=== PATIENT | male | born 1990 | race Caucasian/White ===

== ENCOUNTER 2020-06-17 20:59 | Inpatient (IN) ==
[2020-06-17] MEDS ORDERED: PROCHLORPERAZINE 2 ML IV ONE (21:39)
[2020-06-17] MEDS ORDERED: AcetylCYSTEINE IV 21 HR REGIMEN (>40KG) IV STA (21:39)
[2020-06-17] MEDS ORDERED: ACETYLCYSTEINE IV ONE (21:39)
[2020-06-17] MEDS ORDERED: DEXTROSE 5% IV ONE (21:39)
[2020-06-17] MEDS ORDERED: FAMOTIDINE 20MG/5ML IV PUSH IV STA (21:39)
[2020-06-17] MEDS ORDERED: SODIUM CHLORIDE 0.9% 1000ML 2,000 ML IV SCH (21:45)
[2020-06-17 21:49] LABS: Basophils # (auto) 0.02 K/uL (0-0.2); Basophils % (auto) 0.2 %; Eosinophils # (auto) 0.02 K/uL (0-0.5); Eosinophils % (auto) 0.2 %; Hematocrit (blood only) 44.5 % (42-52); Hemoglobin 15.2 g/dL (14.0-18.0); Immature Granulocytes # (auto) 0.02 K/uL (0.00-0.02); Immature Granulocytes % (auto) 0.2 %; Lymphocytes # (auto) 0.58 K/uL (1.2-3.4); Lymphocytes % (auto) 6.9 %; Mean Corpuscular Hemoglobin 29.6 pg (25-34); Mean Corpuscular Hgb Conc 34.2 g/dL (32-36); Mean Corpuscular Volume 86.7 fL (80-100); Monocytes # (auto) 0.27 K/uL (0.11-0.59); Monocytes % (auto) 3.2 %; Neutrophils # (auto) 7.52 K/uL (1.4-6.5); Neutrophils % (auto) 89.3 %; Platelet Count 384 K/uL (130-400); RDW Coefficient of Variation 12.7 % (11.5-14.5); RDW Standard Deviation 40.7 fL (36.4-46.3); Red Blood Count 5.13 M/uL (4.7-6.1); White Blood Count 8.43 K/uL (4.8-10.8)
[2020-06-17 22:14] LABS: Albumin Level 4.8 gm/dl (3.4-5.0); BUN Creatinine Ratio 12.7 (10-20); Calcium 9.7 mg/dl (8.5-10.1); Creatinine Clr Calc Pharmacy 123.2 ml/min; Est GFR (African American) 117.4; Est GFR (Non-African American) 101.3; Magnesium 2.5 mg/dl (1.8-2.4)
[2020-06-17 22:25] LABS: Albumin Globulin Ratio 1.3 (0.9-2); Bilirubin,Total 0.6 mg/dl (0.2-1); Globulin 3.8 gm/dl (2.5-4.0); Thyroid Stimulating Hormone 0.944 uIu/ml (0.300-4.500); Total Protein 8.6 gm/dl (6.4-8.2)
[2020-06-17 22:29] LABS: Acetaminophen 12 ug/ml (10-30); Lithium 0.4 mmol/L (0.6-1.2); Salicylate < 1.7 mg/dl (2.8-20)
[2020-06-17] MEDS ORDERED: IOVERSOL 100ml IV ONE (22:39)
[2020-06-17] MEDS ORDERED: AcetylCYSTEINE 4,100 MG in DEXTROSE 5% 500 ML IV ONE (22:42)
--- NOTE | 2020-06-17 23:31 | History & Physical Report ---
Date of Service June 17, 2020 Assessment & Plan (1) Intentional acetaminophen overdose: Initial acetaminophen level is 12. Continue Acetadote per protocol. Admit to monitored bed. Patient is a poor historian, and reports that he has taken in addition multiple dosages of Flagyl and antacids. Present on Admission?: Yes (2) GERD (gastroesophageal reflux disease): Continue pantoprazole Present on Admission?: Yes (3) Depression: Consult psychiatry Hold all current meds Present on Admission?: Yes History of Present Illness Chief Complaint: The patient presents to the emergency department with report of intentional acetaminophen overdose. Primary Care Provider: NO PCP The patient is a 29-year-old male resident of [facility], who reports that between 9 AM and 2 PM today, he took 120 tablets of 500 mg dosage of acetaminophen, 2 containers of antacids, and 60 tablets of his 5 mg Flagyl to get back at the officers [facility] the [facility], so they would have to take him to the hospital. Allergies Allergy/AdvReac Type Severity Reaction Status Date / Time ibuprofen [From Motrin] Allergy Gastrointestinal Verified 06/17/20 21:42 Upset Home Medications Home Medications Medication Instructions Recorded Confirmed Type Mineral Oil Heavy 30 ml PO BID 06/17/20 06/17/20 History Tums Anti-Gas/Antacid 2 tabs PO BID 06/17/20 06/17/20 History acetaminophen 1,000 mg PO BID PRN 06/17/20 06/17/20 History lithium carbonate 300 mg PO BID 06/17/20 06/17/20 History magnesium citrate 1 dose PO BID 06/17/20 06/17/20 History magnesium hydroxide [Milk of 30 ml PO DAILY PRN 06/17/20 06/17/20 History Magnesia] metronidazole 500 mg PO TID 06/17/20 06/17/20 History mirtazapine 15 mg PO HS 06/17/20 06/17/20 History ondansetron 4 mg PO TID 06/17/20 06/17/20 History pantoprazole 40 mg PO DAILY 06/17/20 06/17/20 History prazosin [Minipress] 1 mg PO HS 06/17/20 06/17/20 History propranolol 10 mg PO BID 06/17/20 06/17/20 History sucralfate 1 g PO QID 06/17/20 06/17/20 History Past Med/Surg History Medical History (Updated 06/18/20 @ 02:11 by Krishna Myers MD) Depression GERD (gastroesophageal reflux disease) Insomnia Social History Smoking Status: Never smoker Preferred Language: Khmer Review of Systems Review of Systems: The patient denies chest pain, palpitations, shortness of breath, dyspnea on exertion, cough, lower extremity swelling, sore throat, fevers, chills, sweats, vomiting, diarrhea , constipation, abdominal pain, pelvic pain, blood in urine or stool, dysuria, urinary frequency or urgency, lightheadedness, dizziness, headache, memory loss, loss of consciousness, rash, abnormal bruising or bleeding, imbalance, focal or generalized weakness, numbness or tingling in arms or legs, generalized arthralgias or myalgias, back or neck pain, or night sweats. The review of systems is otherwise negative other than for that already noted ab ove, and at least 10 systems have been reviewed. Physical Exam Physical Exam: The patient is awake, alert and oriented 3, well developed and well nourished, normocephalic and atraumatic, lying in bed and in no acute distress. HEENT--PERRL, EOMI, mucous membranes and oropharynx normal. Neck--supple. No JVD. No bruits. Thyroid normal, trachea midline, no adenopathy. Heart--normal S1 and S2. No murmurs, rubs or gallops. Lungs--clear bilaterally, no respiratory distress, no accessory muscle use. Abdomen--normal bowel sounds and soft. Nontender. Nondistended. Extremities--no cyanosis or clubbing. No edema. There are good distal pulses b/l. Dermatologic--normal skin turgor, normal color, no abnormal lymph nodes, no rash. Neurologic--cranial nerves II through XII grossly intact. Rheumatologic--normal range of motion. Psychiatric--normal affect. Results & Data Results & Data ([facility]) Vital Signs (Past 12 Hours) Vital Signs Temp Pulse Resp BP Pulse Ox 06/17/20 21:02 99.0 F 83 18 128/84 98 Laboratory Results Laboratory Results WBC 8.43 K/uL (4.8-10.8) 06/17/20 21:25 RBC 5.13 M/uL (4.7-6.1) 06/17/20: Hgb 15.2 g/dL (14.0-18.0) 06/17/20: Hct 44.5 % (42-52) 06/17/20: MCV 86.7 fL (80-100) 06/17/20: MCH 29.6 pg (25-34) 06/17/20: MCHC 34.2 g/dL (32-36) 06/17/20: RDW Std Deviation 40.7 fL (36.4-46.3) 06/17/20: RDW Coeff of [place] 12.7 % (11.5-14.5) 06/17/20: Plt Count 384 K/uL (130-400) 06/17/20: MPV 10.0 fL (7.4-10.4) 06/17/20: Immature Gran % (Auto) 0.2 % 06/17/20: Neut % (Auto) 89.3 % 06/17/20: Lymph % (Auto) 6.9 % 06/17/20: [place] % (Auto) 3.2 % 06/17/20: Eos % (Auto) 0.2 % 06/17/20: Baso % (Auto) 0.2 % 06/17/20: Neut # (Auto) 7.52 K/uL (1.4-6.5) H 06/17/20: Lymph # (Auto) 0.58 K/uL (1.2-3.4) L 06/17/20: [place] # (Auto) 0.27 K/uL (0.11-0.59) 06/17/20: Eos # (Auto) 0.02 K/uL (0-0.5) 06/17/20: Baso # (Auto) 0.02 K/uL (0-0.2) 06/17/20: Immature Gran # (Auto) 0.02 K/uL (0.00-0.02) 06/17/20 21: PT 11.4 Seconds (9.0-12.0) 06/17/20 21:25 INR 1.1 (0.9-1.1) 06/17/20 21:25 APTT 25.5 Seconds (21.0-31.0) 06/17/20 21:25 PTT Ratio 0.9 06/17/20 21:25 Sodium 137 mmol/L (136-145) 06/17/20 21:25 Potassium 4.0 mmol/L (3.5-5.1) 06/17/20 21:25 Chloride 104 mmol/L (98-107) 06/17/20 21:25 Carbon Dioxide 28 mmol/L (21-32) 06/17/20 21:25 Anion Gap 6.0 (3-11) 06/17/20 21:25 BUN 13 mg/dl (7-18) 06/17/20:25 Creatinine 1.00 mg/dl (0.6-1.4) 06/17/20 21:25 Est Cr Clr Drug Dosing 123.2 ml/min 06/17/20 21:25 Est GFR ( Amer) 117.4 06/17/20 21:25 Est GFR (Non-Af Amer) 101.3 06/17/20 21:25 BUN/Creatinine Ratio 12.7 (10-20) 06/17/20 21:25 Glucose 109 mg/dl (70-99) H 06/17/20 21:25 Calcium 9.7 mg/dl (8.5-10.1) 06/17/20 21:25 Phosphorus 3.0 mg/dl (2.5-4.9) 06/17/20 21:25 Magnesium 2.5 mg/dl (1.8-2.4) H 06/17/20 21:25 Total Bilirubin 0.6 mg/dl (0.2-1) 06/17/20 21:25 AST 15 U/L (15-37) 06/17/20 21:25 ALT 17 U/L (12-78) 06/17/20 21:25 Alkaline Phosphatase 53 U/L (45-117) 06/17/20 21:25 Total Protein 8.6 gm/dl (6.4-8.2) H 06/17/20 21:25 Albumin 4.8 gm/dl (3.4-5.0) 06/17/20 21:25 Globulin 3.8 gm/dl (2.5-4.0) 06/17/20 21:25 Albumin/Globulin Ratio 1.3 (0.9-2) 06/17/20 21:25 TSH 0.944 uIu/ml (0.300-4.500) 06/17/20 21:25 Urine Color Yellow 06/17/20 23:30 Urine Appearance Clear (Clear) 06/17/20 23:30 Urine pH 8.0 (4.5-7.5) H 06/17/20 23:30 Ur Specific [place] 1.023 (1.000-1.030) 06/17/20 23:30 Urine Protein Negative (Negative) 06/17/20 23:30 Urine Glucose (UA) Negative (Negative) 06/17/20 23:30 Urine Ketones 2+ (Negative) H 06/17/20 23:30 Urine Blood Negative (Negative) 06/17/20 23:30 Urine Nitrite Negative (Negative) 06/17/20 23:30 Urine Bilirubin Negative (Negative) 06/17/20 23:30 Urine Urobilinogen Negative (Negative) 06/17/20 23:30 Ur Leukocyte Esterase Negative (Negative) 06/17/20 23:30 Salicylates < 1.7 mg/dl (2.8-20) L 06/17/20 21:25 Urine Opiates Screen Neg (Neg) 06/17/20 23:30 Ur Methadone, Qual Neg (Neg) 06/17/20 23:30 Acetaminophen 12 ug/ml (10-30) 06/17/20 21:25 Urine Barbiturates Neg (Neg) 06/17/20 23:30 Ur Phencyclidine (PCP) Neg (Neg) 06/17/20 23:30 U Amphetamin/Meth Scrn Neg (Neg) 06/17/20 23:30 MDMA (Ecstasy) Screen Neg (Neg) 06/17/20 23:30 U Benzodiazepines Scrn Neg (Neg) 06/17/20 23:30 [place] 0.4 mmol/L (0.6-1.2) L 06/17/20 21:25 Ur Cocaine Metabolite Neg (Neg) 06/17/20 23:30 U Marijuana (THC) Screen Neg (Neg) 06/17/20 23:30 Ethyl Alcohol mg/dL < 3.0 mg/dl (0-3) 06/17/20 21:59 Diagnostic Findings [facility] Patient: MANDO GILL [id number] (Male) : 89 Status: ER Date: 06/17/20 22:41 Room #: History: abdominal pains overdose, appendix present Slices: [phone] Priors: Tech: Patti Mendosa @ [phone] Exams: CT ABDOMEN & PELVIS With Contrast Contrast: IV Amt: 93ml of optiray 320 Accession Numbers: [id number] Preliminary Findings Only See Final Report For Complete Findings CT ABDOMEN & PELVIS With Contrast: Small left renal cyst. No hydronephrosis or obstructing stone. Small amount of free fluid in the pelvis. Moderate to large amount of stool in the colon may represent constipation. No bowel obstruction. Normal appendix. Radiologist: J Carlso Howell M.D. Study ready at 22:44 and initial results transmitted at 23:10 *This report constitutes a preliminary interpretation only. Non-acute findings felt to be unrelated to the clinical presentation may not be discussed in this report. The study will be interpreted and a final report will be generated by the local Radiologist the following shift. To reach the hospital radiology department call [phone]. If a discrepancy is found between the preliminary and final interpretations of this study, please notify us via our Client Portal at [email or web address] can also fax this report with a description of the discrepancy, or include the final report, to our daytime fax number [phone].If faxing, please indicate the severity of discrepancy using one of the following categories: [ ] 1 - Agree/Informational [ ] 2 - Unlikely to Affect Management [ ] 3 - Possible Eventual Change of Management [ ] 4 - Probable Immediate Change of Management For all other patient related information, please fax us at [phone]. [id number] Code Status & VTE Plan Code Status Full code VTE Prophylaxis Plan VTE Prophylaxis will be ordered: Yes PG Care Time/CCT Total # of Minutes Spent Total Time Spent with Patient: Total time spent is greater than 50% in coordination of care (as documented) at patient's floor/unit and/or counseling patient: Coding Level of Care Code 71101 Initial Inpt Care Lvl 3 Diagnoses Intentional acetaminophen overdose T39.1X2A GERD (gastroesophageal reflux disease) K21.9 Depression F32.9
--- NOTE | 2020-06-17 23:34 | Emergency Department Note ---
Impression & Plan Intentional acetaminophen overdose, Depression, Abdominal pain, epigastric, Nausea & vomiting ED Provider Note NAME: MANDO [id number] BRIDGET AGE: 29 SEX: M ARRIVES VIA: Walk-In INFORMANT: Patient ED PROVIDER(S): Jose Alfredo Dowell MD CHIEF COMPLAINT: Overdose PLAN: Disposition: Admit MEDICAL DECISION MAKING: The patient is a pleasant 29-year-old gentleman, current inmate at [facility] who presents emerged department after having intentional overdose which occurred throughout today where he reports taking 120 tablets of 500 mg Tylenol between 9 AM and 2 PM today in addition to 2 containers of antacids and 60 tablets of his 500 mg Flagyl which she reports he took as he got in a dispute with his officers and did this to get back at them so they would "have to take him to the hospital" but he denies any active thoughts of wanting to kill himself at this time though he does admit to feeling frequently depressed and hopeless at times. He denies any recent illness prior to today including denies fevers chills, cough congestion, patient reports he has had recurrent nausea and vomiting with bloody emesis at times since this afternoon and feels as though he has not urinated. On arrival the patient is in no acute distress, afebrile stable vital signs. He has mild upper abdominal discomfort without discrete tenderness. EKG is unremarkable with out overt acute ischemia. QTC 428 and QRS 106. Chest x- ray negative for acute process per my preliminary review. Given the patient's Tylenol overdose occurred over the course of 5 hours his overdose would be categorized as chronic ingestion making the Tylenol level less valuable and so neck protocol was initiated. WBC, H/H and platelets within normal limits. Chemistry without acidosis. Electrolytes and LFTs unremarkable. Salicylate level negative. Tylenol level detectable at 12, lithium level at 0.4. Blood alcohol was negative. CT and pelvis was performed and negative for acute process per preliminary stat read report. I did discuss the case with [facility] and they agree with treatment with neck protocol given the patient's chronic congestion and recommend monitoring of LFTs with repeat LFTs 4 hours prior to discontinuing of 21-hour neck protocol as well as morning electrolytes particularly sodium and calcium given the ingestion of antacids. Case was discussed with Dr. Myers, [facility] hospitalist, who will evaluate the patient for admission. Triage Nursing notes reviewed and agree them. Prior medical records reviewed Vital Signs: reviewed and remarkable for no significant abnormalities Differential diagnosis: Overdose, toxicologic, infection, hypoglycemia, electrolyte abnormalities, cardiac sources, intracerebral event, neurologic, trauma, as well as other pathologies. ER treatment provided: See below. Diagnostics interpreted by me: ECG: Normal sinus rhythm, 79 bpm, no ectopy, no overt ST elevation or depression, QTC 428, QRS 106. Cardiac Monitoring: An order for continuous cardiac monitoring was placed and demonstrated normal sinus rhythm, 79 bpm, no ectopy. Laboratory studies: See below Imaging studies: Preliminary Findings Only See Final Report For Complete Findings CT ABDOMEN & PELVIS With Contrast: Small left renal cyst. No hydronephrosis or obstructing stone. Small amount of free fluid in the pelvis. Moderate to large amount of stool in the colon may represent constipation. No bowel obstruction. Normal appendix. Radiologist: J Carlos Howell M.D. Study ready at 22:44 and initial results transmitted at 23:10 Consultation(s): Case was discussed with Dr. Myers, [facility] hospitalist, who will evaluate the patient for admission. HPI: The patient is a pleasant 29-year-old gentleman, current inmate at [facility] who presents emerged department after having intentional overdose which occurred throughout today where he reports taking 120 tablets of 500 mg Tylenol between 9 AM and 2 PM today in addition to 2 containers of antacids and 60 tablets of his 500 mg Flagyl which she reports he took as he got in a dispute with his officers and did this to get back at them so they would "have to take him to the hospital" but he denies any active thoughts of wanting to kill himself at this time though he does admit to feeling frequently depressed and hopeless at times. He denies any recent illness prior to today including denies fevers chills, cough congestion, patient reports he has had recurrent nausea and vomiting with bloody emesis at times since this afternoon and feels as though he has not urinated. ROS: See above HPI for pertinent positives & negatives. A total of [10] systems reviewed and were otherwise negative. PAST MEDICAL HISTORY:See Below PAST SURGICAL HISTORY:See Below FAMILY HISTORY:See Below SOCIAL HISTORY:See Below HOME MEDICATIONS:See Below ALLERGIES:See Below VITALS:See Below PHYSICAL EXAMINATION: GENERAL: Awake, alert, uncomfortable-appearing, in no distress HENT: Normocephalic, atraumatic. Oropharynx with dry mucous membranes and otherwise unremarkable. EYES: Normal conjunctiva. Sclera non-icteric. EOMI. No nystamgus. PEARRL. NECK: Supple. No nuchal rigidity. FROM. No JVD. RESPIRATORY: Clear to auscultation. CARDIAC: Regular rate, normal rhythm. Extremities warm and well perfused. Pulses equal. ABDOMEN: Soft, non-distended. Mild epigastric discomfort without discrete tenderness to palpation. No rebound or guarding. No masses. RECTAL: Deferred. MUSCULOSKELETAL: Chest examination reveals no tenderness. The back is symmetrical on inspection without obvious abnormality. There is no CVA tenderness to palpation. No joint edema. LOWER EXTREMITIES: Calves are equal size bilaterally and non-tender. No edema. No discoloration. NEURO: Normal sensorium. No sensory or motor deficits noted. DTRs wnl. No clonus. SKIN: No rash or jaundice noted. ED COURSE: Critical Care: I have personally spent greater than 75 minutes of critical care time in the direct management of this patient. This includes bedside care, interpretation of diagnostic studies, and testing, discussion with consultants, patient, and family members, and other required patient management activities. This 75 minutes is in excess of all separately billable procedures. Jose Alfredo Dowell MD Past Med/Surg History Medical History (Updated 06/18/20 @ 03:24 by Jose Alfredo Dowell MD) Depression GERD (gastroesophageal reflux disease) Insomnia Social History Smoking Status: Never smoker Preferred Language: Icelandic Allergies Allergies Allergy/AdvReac Type Severity Reaction Status Date / Time ibuprofen [From Motrin] Allergy Gastrointestinal Verified 06/17/20 21:42 Upset Home Meds Home Medications Medication Instructions Recorded Confirmed Mineral Oil Heavy 30 ml PO BID 06/17/20 06/17/20 Tums Anti-Gas/Antacid 2 tabs PO BID 06/17/20 06/17/20 acetaminophen 1,000 mg PO BID PRN 06/17/20 06/17/20 lithium carbonate 300 mg PO BID 06/17/20 06/17/20 magnesium citrate 1 dose PO BID 06/17/20 06/17/20 magnesium hydroxide [Milk of 30 ml PO DAILY PRN 06/17/20 06/17/20 Magnesia] metronidazole 500 mg PO TID 06/17/20 06/17/20 mirtazapine 15 mg PO HS 06/17/20 06/17/20 ondansetron 4 mg PO TID 06/17/20 06/17/20 pantoprazole 40 mg PO DAILY 06/17/20 06/17/20 prazosin [Minipress] 1 mg PO HS 06/17/20 06/17/20 propranolol 10 mg PO BID 06/17/20 06/17/20 sucralfate 1 g PO QID 06/17/20 06/17/20 Results & Data (ED) Vital Signs Vital Signs - 24 hr 06/17/20 21:02 06/17/20 21:20 06/17/20 21:22 Temperature 37.2 C Temperature Source Oral Pulse Rate 83 78 80 Pulse Rate from SpO2 Sensor 77 79 Respiratory Rate 18 18 13 Respiratory Effort / Characteristics Non-Labored Spontaneous Respiratory Depth Normal Respiratory Pattern Regular Blood Pressure 128/84 130/82 Blood Pressure Mean 98 93 Blood Pressure Position Sitting Pulse Oximetry 98 100 100 Oxygen Delivery Method Room Air Room Air Oxygen Flow Rate 99 Sepsis Recent Fever Within 48 Hours No Sepsis New/Unexplained Change in Mental Status No Sepsis Action Taken by Nursing No Action Required 06/17/20 21:30 06/17/20 21:31 06/17/20 22:00 Temperature Temperature Source Pulse Rate 80 80 75 Pulse Rate from SpO2 Sensor 80 77 76 Respiratory Rate Respiratory Effort / Characteristics Respiratory Depth Respiratory Pattern Blood Pressure 142/85 H 122/75 Blood Pressure Mean 92 84 Blood Pressure Position Pulse Oximetry 99 98 99 Oxygen Delivery Method Oxygen Flow Rate Sepsis Recent Fever Within 48 Hours Sepsis New/Unexplained Change in Mental Status Sepsis Action Taken by Nursing 06/17/20 22:01 06/17/20 22:43 06/17/20 23:00 Temperature Temperature Source Pulse Rate 74 92 H 85 Pulse Rate from SpO2 Sensor 74 90 85 Respiratory Rate 11 L 14 Respiratory Effort / Characteristics Respiratory Depth Respiratory Pattern Blood Pressure 123/72 Blood Pressure Mean 87 Blood Pressure Position Pulse Oximetry 99 99 98 Oxygen Delivery Method Oxygen Flow Rate Sepsis Recent Fever Within 48 Hours Sepsis New/Unexplained Change in Mental Status Sepsis Action Taken by Nursing 06/17/20 23:01 Temperature Temperature Source Pulse Rate 87 Pulse Rate from SpO2 Sensor 87 Respiratory Rate 14 Respiratory Effort / Characteristics Respiratory Depth Respiratory Pattern Blood Pressure Blood Pressure Mean Blood Pressure Position Pulse Oximetry 98 Oxygen Delivery Method Oxygen Flow Rate Sepsis Recent Fever Within 48 Hours Sepsis New/Unexplained Change in Mental Status Sepsis Action Taken by Nursing Laboratory Data Attestation: I reviewed the patient's lab results. Result diagrams: 06/17/20 21:25 06/17/20 21:25 Lab Results 06/17/20 06/17/20 06/17/20 Range/Units 21:25 21:25 21:25 WBC 8.43 (4.8-10.8) K/uL RBC 5.13 (4.7-6.1) M/uL Hgb 15.2 (14.0-18.0) g/dL Hct 44.5 (42-52) % MCV 86.7 (80-100) fL MCH 29.6 (25-34) pg MCHC 34.2 (32-36) g/dL RDW Std Deviation 40.7 (36.4-46.3) fL RDW Coeff of Osmany 12.7 (11.5-14.5) % Plt Count 384 (130-400) K/uL MPV 10.0 (7.4-10.4) fL Immature Gran % (Auto) 0.2 % Neut % (Auto) 89.3 % Lymph % (Auto) 6.9 % [place] % (Auto) 3.2 % Eos % (Auto) 0.2 % Baso % (Auto) 0.2 % Neut # (Auto) 7.52 H (1.4-6.5) K/uL Lymph # (Auto) 0.58 L (1.2-3.4) K/uL Clar[place] # (Auto) 0.27 (0.11-0.59) K/uL Eos # (Auto) 0.02 (0-0.5) K/uL Baso # (Auto) 0.02 (0-0.2) K/uL Immature Gran # (Auto) 0.02 (0.00-0.02) K/uL PT (9.0-12.0) Seconds INR (0.9-1.1) APTT (21.0-31.0) Seconds PTT Ratio Sodium 137 (136-145) mmol/L Potassium 4.0 (3.5-5.1) mmol/L Chloride 104 (98-107) mmol/L Carbon Dioxide 28 (21-32) mmol/L Anion Gap 6.0 (3-11) BUN 13 (7-18) mg/dl Creatinine 1.00 (0.6-1.4) mg/dl Est Cr Clr Drug Dosing 123.2 ml/min Est GFR ( Amer) 117.4 Est GFR (Non-Af Amer) 101.3 BUN/Creatinine Ratio 12.7 (10-20) Glucose 109 H (70-99) mg/dl Calcium 9.7 (8.5-10.1) mg/dl Phosphorus 3.0 (2.5-4.9) mg/dl Magnesium 2.5 H (1.8-2.4) mg/dl Total Bilirubin 0.6 (0.2-1) mg/dl AST 15 (15-37) U/L ALT 17 (12-78) U/L Alkaline Phosphatase 53 (45-117) U/L Total Protein 8.6 H (6.4-8.2) gm/dl Albumin 4.8 (3.4-5.0) gm/dl Globulin 3.8 (2.5-4.0) gm/dl Albumin/Globulin Ratio 1.3 (0.9-2) TSH 0.944 (0.300-4.500) uIu/ml Salicylates < 1.7 L (2.8-20) mg/dl Acetaminophen 12 (10-30) ug/ml [place] 0.4 L (0.6-1.2) mmol/L Ethyl Alcohol mg/dL (0-3) mg/dl 06/17/20 06/17/20 Range/Units 21:25 21:59 WBC (4.8-10.8) K/uL RBC (4.7-6.1) M/uL Hgb (14.0-18.0) g/dL Hct (42-52) % MCV (80-100) fL MCH (25-34) pg MCHC (32-36) g/dL RDW Std Deviation (36.4-46.3) fL RDW Coeff of Osmany (11.5-14.5) % Plt Count (130-400) K/uL MPV (7.4-10.4) fL Immature Gran % (Auto) % Neut % (Auto) % Lymph % (Auto) % [place] % (Auto) % Eos % (Auto) % Baso % (Auto) % Neut # (Auto) (1.4-6.5) K/uL Lymph # (Auto) (1.2-3.4) K/uL [place] # (Auto) (0.11-0.59) K/uL Eos # (Auto) (0-0.5) K/uL Baso # (Auto) (0-0.2) K/uL Immature Gran # (Auto) (0.00-0.02) K/uL PT 11.4 (9.0-12.0) Seconds INR 1.1 (0.9-1.1) APTT 25.5 (21.0-31.0) Seconds PTT Ratio 0.9 Sodium (136-145) mmol/L Potassium (3.5-5.1) mmol/L Chloride (98-107) mmol/L Carbon Dioxide (21-32) mmol/L Anion Gap (3-11) BUN (7-18) mg/dl Creatinine (0.6-1.4) mg/dl Est Cr Clr Drug Dosing ml/min Est GFR ( Amer) Est GFR (Non-Af Amer) BUN/Creatinine Ratio (10-20) Glucose (70-99) mg/dl Calcium (8.5-10.1) mg/dl Phosphorus (2.5-4.9) mg/dl Magnesium (1.8-2.4) mg/dl Total Bilirubin (0.2-1) mg/dl AST (15-37) U/L ALT (12-78) U/L Alkaline Phosphatase (45-117) U/L Total Protein (6.4-8.2) gm/dl Albumin (3.4-5.0) gm/dl Globulin (2.5-4.0) gm/dl Albumin/Globulin Ratio (0.9-2) TSH (0.300-4.500) uIu/ml Salicylates (2.8-20) mg/dl Acetaminophen (10-30) ug/ml [place] (0.6-1.2) mmol/L Ethyl Alcohol mg/dL < 3.0 (0-3) mg/dl Administered Medications Potassium Chloride/Sodium Chloride (Normal Saline W/20 Meq Kcl) 20 meq in 1,000 mls @ 100 mls/hr IV .Q10H DEVON Stop: 07/18/20 01:13 Last Admin: 06/18/20 01:52 Dose: 100 mls/hr Documented by: [id number] [place] Carbonate ([place] Carbonate 300 Mg Tab) 300 mg PO BID DEVON Stop: 07/18/20 01:13 Last Admin: 06/18/20 02:08 Dose: 300 mg Documented by: [id number] Propranolol HCl (Propranolol Hcl 10 Mg Tab) 10 mg PO BID DEVON Stop: 07/18/20 01:13 Last Admin: 06/18/20 02:08 Dose: 10 mg Documented by: [id number] Discontinued Medications Famotidine (Famotidine 20mg/5ml Iv Push) 20 mg IV ONE STA Stop: 06/17/20 21:40 Last Admin: 06/17/20 21:53 Dose: 20 mg Documented by: [id number] Sodium Chloride (Nss 1000ml) 2,000 mls @ 999 mls/hr IV .Q2H1M DEVON Stop: 06/17/20 23:45 Last Infusion: 06/17/20 23:35 Dose: 0 mls/hr Documented by: [id number] Admin: 06/17/20 21:52 Dose: 999 mls/hr Documented by: [id number] Acetylcysteine 12,290 mg/ (Dextrose) 261.45 mls @ 200 mls/hr IV ONCE ONE Stop: 06/17/20 22:57 Last Infusion: 06/17/20 23:34 Dose: 0 mls/hr Documented by: [id number] Admin: 06/17/20 22:06 Dose: 200 mls/hr Documented by: [id number] Acetylcysteine 4,100 mg/ (Dextrose) 520.5 mls @ 125 mls/hr IV ONCE ONE Stop: 06/18/20 02:51 Last Admin: 06/17/20 23:31 Dose: 125 mls/hr Documented by: [id number] Prochlorperazine (Compazine) 2 mls @ 1 mls/min IV ONE ONE Stop: 06/17/20 21:40 Last Admin: 06/17/20 21:52 Dose: 1 mls/min Documented by: [id number] Ioversol (Ioversol 100ml) 93 ml IV ONCE ONE Stop: 06/17/20 22:40 Last Admin: 06/17/20 22:39 Dose: 93 ml Documented by: [id number] Blood Pressure Blood Pressure Findings: Normal blood pressure Blood Pressure Disposition: further management by hospitalist Discharge Plan Visit Data Chief Complaint: Overdose (Intentional) Stated Complaint: POSSIBLE INGESTION OF MULTIPLE MEDS ED Provider: Jose Alfredo Dowell Discharge Problem: Intentional acetaminophen overdose, Depression, Abdominal pain, epigastric, Nausea & vomiting Patient Disposition: Admitted As Inpatient Discharge Instructions Interventions: ED Discharge Assessment Last Done: 06/18/20 00:24 Discharge Problem: Intentional acetaminophen overdose Qualifiers: Encounter type: initial encounter Qualified Code(s): T39.1X2A - Poisoning by 4- Aminophenol derivatives, intentional self-harm, initial encounter Depression Qualifiers: Depression Type: unspecified Qualified Code(s): F32.9 - Major depressive disorder, single episode, unspecified
[2020-06-17 23:37] LABS: INR 1.1 (0.9-1.1); Partial Thromboplastin Ratio 0.9; Partial Thromboplastin Time 25.5 Seconds (21.0-31.0); Prothrombin Time 11.4 Seconds (9.0-12.0)
[2020-06-17 23:48] LABS: Appearance Urine Clear (Clear); Bilirubin Urine Negative (Negative); Blood Urine Negative (Negative); Color Urine Yellow; Glucose Urine UA Negative (Negative); Ketones Urine 2+ (Negative); Leukocyte Esterase Urine Negative (Negative); Nitrite Urine Negative (Negative); Protein Urine Negative (Negative); Specific Gravity Urine 1.023 (1.000-1.030); Urobilinogen Urine Negative (Negative)
[2020-06-18 00:11] LABS: Amphetamines+Metham, Urine Neg (Neg); Barbiturates, Urine Neg (Neg); Benzodiazepine, Urine Neg (Neg); Cocaine, Urine Neg (Neg); MDMA (Ecstacy), Urine Neg (Neg); Methadone, Urine Neg (Neg); Opiate, Urine Neg (Neg); Phencyclidine, Urine Neg (Neg)
[2020-06-18] MEDS ORDERED: ONDANSETRON INJ 2 MG/ML 2 ML VIAL IV PRN (01:14)
[2020-06-18] MEDS: NSS + 20MEQ KCL 20 MEQ/1,000 ML BAG IV SCH ×3 (01:52→20:43)
[2020-06-18] MEDS: PROPRANOLOL HCL 10 MG TAB PO SCH ×3 (02:08→20:43)
[2020-06-18] MEDS: LITHIUM CARBONATE 300 MG TAB PO SCH ×3 (02:08→20:43)
[2020-06-18] MEDS ORDERED: DEXTROSE 5% IV ONE (02:42)
[2020-06-18] MEDS ORDERED: ACETYLCYSTEINE IV ONE (02:42)
[2020-06-18 06:40] LABS: Basophils # (auto) 0.03 K/uL (0-0.2); Basophils % (auto) 0.3 %; Hematocrit (blood only) 43.6 % (42-52); Hemoglobin 14.9 g/dL (14.0-18.0); Immature Granulocytes # (auto) 0.02 K/uL (0.00-0.02); Immature Granulocytes % (auto) 0.2 %; Lymphocytes # (auto) 1.15 K/uL (1.2-3.4); Lymphocytes % (auto) 11.2 %; Mean Corpuscular Hemoglobin 29.5 pg (25-34); Mean Corpuscular Hgb Conc 34.2 g/dL (32-36); Mean Corpuscular Volume 86.3 fL (80-100); Mean Platelet Volume 9.7 fL (7.4-10.4); Monocytes # (auto) 0.83 K/uL (0.11-0.59); Monocytes % (auto) 8.1 %; Neutrophils # (auto) 8.14 K/uL (1.4-6.5); Neutrophils % (auto) 79.2 %; Platelet Count 375 K/uL (130-400); RDW Coefficient of Variation 12.9 % (11.5-14.5); RDW Standard Deviation 40.5 fL (36.4-46.3); Red Blood Count 5.05 M/uL (4.7-6.1); White Blood Count 10.27 K/uL (4.8-10.8)
[2020-06-18 06:48] LABS: INR 1.3 (0.9-1.1); Partial Thromboplastin Time 26.7 Seconds (21.0-31.0); Prothrombin Time 13.2 Seconds (9.0-12.0)
--- NOTE | 2020-06-18 06:57 | XRay Report ---
XR chest 1V portable HISTORY: 29 years-old Male od abd pain drug overdose with acute generalized abdominal and chest pain COMPARISON: CT abdomen and pelvis of same day TECHNIQUE: Portable AP view of the chest FINDINGS: Cardiomediastinal and hilar silhouettes are within normal limits. There is no pneumothorax, pleural e ffusion, airspace consolidation or overt pulmonary edema. The bones of the chest appear grossly intac t. IMPRESSION: No acute process. ACT 112: Negative or not required by law. The above report was generated using voice recognition software. It may contain grammatical, syntax o r spelling errors. Electronically signed by: Campos Melchor M.D. 06/18/2020 6:56 AM
[2020-06-18 07:06] LABS: Albumin Level 3.6 gm/dl (3.4-5.0); BUN Creatinine Ratio 10.4 (10-20); Calcium 9.1 mg/dl (8.5-10.1); Creatinine Clr Calc Pharmacy 168.7 ml/min; Est GFR (African American) 145.3; Est GFR (Non-African American) 125.3; Magnesium 2.3 mg/dl (1.8-2.4)
[2020-06-18 07:19] LABS: Bilirubin,Total 0.5 mg/dl (0.2-1); Globulin 3.5 gm/dl (2.5-4.0); Total Protein 7.1 gm/dl (6.4-8.2)
--- NOTE | 2020-06-18 07:47 | CT Scan Report ---
CT SCAN OF THE ABDOMEN AND PELVIS WITH IV CONTRAST CLINICAL HISTORY: Generalized abdominal pain. Overdose. COMPARISON STUDY: No priors. TECHNIQUE: Following the IV administration of 93 cc of Optiray 320, CT scan of the abdomen and pelvi s is performed from the lung bases to the proximal femora. Images are reviewed in the axial, sagittal , and coronal planes. IV contrast was administered without complication. A dose lowering technique wa s utilized adhering to the principles of ALARA. The examination is degraded by motion artifact. CT DOSE: 335.73 mGy.cm FINDINGS: Lung bases: The heart is normal in size and without pericardial effusion. The lung bases are clear. Liver: The contrast-enhanced liver is normal in size, contour, and attenuation. There is no intrahepa tic biliary ductal dilatation. The hepatic veins and portal veins are patent. Gallbladder: Unremarkable. Spleen: Normal in size and attenuation. Pancreas: Unremarkable. Adrenal glands: Unremarkable. Kidneys: The contrast enhanced kidneys are normal in size and without hydronephrosis. The kidneys enh ance symmetrically. A subcentimeter cortical hypodensity in the lower pole of the left kidney likely represents a cyst but is too small for definitive characterization. Abdominal vasculature: The abdominal aorta is normal in course and caliber. Bowel: There is moderate colonic fecal retention. No bowel obstruction is seen. The appendix is well -visualized and normal. Peritoneum: There is a small one of free fluid in the pelvis. No intraperitoneal free air is identifi ed. Lymphadenopathy: None. Pelvic viscera: The bladder, prostate, and seminal vesicles are normal as imaged. Skeletal structures: No lytic or blastic lesions are seen. IMPRESSION: 1. There is a small volume of free fluid in the pelvis. This is a nonspecific but abnormal finding an d may be on a reactive basis. Clinical correlation will be required. 2. Moderate constipation. No bowel obstruction is seen. ACT 112: Negative or not required by law. Electronically signed by: Myles Bush M.D. 06/18/2020 7:46 AM
[2020-06-18] MEDS: PANTOprazole 40 MG TAB PO SCH (08:38)
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
--- NOTE | 2020-06-18 12:50 | Electrocardiogram Report ---
Test Reason : Blood Pressure : / mmHG Vent. Rate : 079 BPM Atrial Rate : 079 BPM P-R Int : 190 ms QRS Dur : 106 ms QT Int : 374 ms P-R-T Axes : 053 -31 052 degrees QTc Int : 428 ms Normal sinus rhythm Left axis deviation Abnormal ECG No previous ECGs available Confirmed by Hipolito Humphrey ([id number]) on 06/18/2020 12:50:20 PM Referred By: REFERRED SELF Confirmed By:Hipolito Humphrey
[2020-06-18 14:58] LABS: INR 1.2 (0.9-1.1); Prothrombin Time 12.7 Seconds (9.0-12.0)
--- NOTE | 2020-06-18 17:54 | Hospitalist Progress Note ---
Date of Service June 18, 2020 Assessment & Plan (1) Intentional acetaminophen overdose: Initial acetaminophen level was 12 with repeat undetectable. Following the Yanira nomogram, he really didn't even need treatment. I suspect his story of taking 120 500mg tablets is not entirely true. - However, will continue Acetadote per protocol. - Likely discharge tomorrow. (2) GERD (gastroesophageal reflux disease): - Continue pantoprazole (3) Depression: Self-harm attempt. - Consult psychiatry - Continue home meds (4) DVT prophylaxis: SCDs - Low DVT risk per admission calculator Admission and Anticipated Discharge Date Admission Date: June 17, 2020 Subjective Doing well. No nausea. Reports no fevers/chills, chest pain, shortness of breath, abdominal pain, nausea, or vomiting. Physical Exam Constitutional: WD/WN, vitals as above Eyes: EOM intact bilaterally; no conjunctival abnormality ENMT: external ear and nose normal, oropharynx normal Neck: trachea midline, no thyromegaly normal visual inspection Respiratory: normal respiratory effort, lungs clear to auscultation no respiratory distress Cardiovascular: RRR, no murmur, no edema Gastrointestinal (Abdomen): Inspection/Auscultation: abdomen normal to inspection; abdomen not distended Musculoskeletal: no cyanosis or clubbing, extremities motor strength 5/5 Skin: no rashes, warm and dry Neurologic: moves all extremities and awake Psychiatric: Orientation: alert, oriented to person and cooperative Results & Data Results & Data ([facility]) Vital Signs (Past 12 Hours) Vital Signs Temp Pulse Pulse Resp BP Pulse Ox 06/18/20 15:32 37.1 C 71 18 130/75 99 06/18/20 15:27 72 06/18/20 11:42 37.3 C 71 18 116/78 99 06/18/20 08:59 74 06/18/20 07:19 37.2 C 72 16 121/81 97 PG Care Time/CCT Total # of Minutes Spent Total Time Spent with Patient: Total time spent is greater than 50% in coordination of care (as documented) at patient's floor/unit and/or counseling patient: Coding Level of Care Code 33214 [facility] H[facility] Care Lvl 2 Diagnoses Intentional acetaminophen overdose T39.1X2A Encounter type: initial encounter GERD (gastroesophageal reflux disease) K21.9 Depression F32.9 Depression Type: unspecified DVT prophylaxis Z29.9 (1) Intentional acetaminophen overdose Encounter type: initial encounter Qualified Code(s): T39.1X2A - Poisoning by 4-Aminophenol derivatives, intentional self-harm, initial encounter (2) Depression Depression Type: unspecified Qualified Code(s): F32.9 - Major depressive disorder, single episode, unspecified
[2020-06-18 19:50] LABS: Albumin Level 3.6 gm/dl (3.4-5.0); Calcium 9.1 mg/dl (8.5-10.1); Creatinine Clr Calc Pharmacy 164.2 ml/min; Est GFR (African American) 143.7
[2020-06-18 19:53] LABS: Albumin Globulin Ratio 1.1 (0.9-2); Bilirubin,Total 0.3 mg/dl (0.2-1); Globulin 3.3 gm/dl (2.5-4.0); Total Protein 6.9 gm/dl (6.4-8.2)
[2020-06-18] MEDS ORDERED: MIRTAZAPINE TAB 15 MG TAB PO SCH (21:00)
[2020-06-18] MEDS ORDERED: PRAZOSIN HCL 1 MG CAP PO SCH (21:00)
[2020-06-19] MEDS: NSS + 20MEQ KCL 20 MEQ/1,000 ML BAG IV SCH (05:16)
[2020-06-19 06:14] LABS: Basophils # (auto) 0.04 K/uL (0-0.2); Basophils % (auto) 0.7 %; Eosinophils # (auto) 0.15 K/uL (0-0.5); Eosinophils % (auto) 2.6 %; Hematocrit (blood only) 40.8 % (42-52); Hemoglobin 13.7 g/dL (14.0-18.0); Immature Granulocytes # (auto) 0.01 K/uL (0.00-0.02); Immature Granulocytes % (auto) 0.2 %; Lymphocytes % (auto) 22.4 %; Mean Corpuscular Hemoglobin 29.2 pg (25-34); Mean Corpuscular Hgb Conc 33.6 g/dL (32-36); Mean Platelet Volume 9.8 fL (7.4-10.4); Monocytes # (auto) 0.45 K/uL (0.11-0.59); Monocytes % (auto) 7.8 %; Neutrophils # (auto) 3.85 K/uL (1.4-6.5); Neutrophils % (auto) 66.3 %; Platelet Count 302 K/uL (130-400); RDW Standard Deviation 41.6 fL (36.4-46.3); Red Blood Count 4.69 M/uL (4.7-6.1)
[2020-06-19 06:24] LABS: INR 1.1 (0.9-1.1); Partial Thromboplastin Time 28.1 Seconds (21.0-31.0)
[2020-06-19 06:47] LABS: Alanine Aminotransferase 16 U/L (12-78); Albumin Level 3.3 gm/dl (3.4-5.0); Aspartate Aminotransferase 9 U/L (15-37); BUN Creatinine Ratio 11.5 (10-20); Blood Urea Nitrogen 7 mg/dl (7-18); Carbon Dioxide 23 mmol/L (21-32); Chloride 113 mmol/L (98-107); Creatinine Clr Calc Pharmacy 208.8 ml/min; Est GFR (African American) > 150.0; Est GFR (Non-African American) 136.8; Glucose 81 mg/dl (70-99); Magnesium 1.7 mg/dl (1.8-2.4); Sodium 142 mmol/L (136-145)
[2020-06-19 06:49] LABS: Albumin Globulin Ratio 1.1 (0.9-2); Alkaline Phosphatase 38 U/L (45-117); Bilirubin,Total 0.4 mg/dl (0.2-1); Globulin 3.1 gm/dl (2.5-4.0); Total Protein 6.4 gm/dl (6.4-8.2)
[2020-06-19] MEDS: PANTOprazole 40 MG TAB PO SCH (08:04)
[2020-06-19] MEDS: PROPRANOLOL HCL 10 MG TAB PO SCH (08:04)
[2020-06-19] MEDS: LITHIUM CARBONATE 300 MG TAB PO SCH (08:05)
[2020-06-19] MEDS: MAGNESIUM SULFATE / D5W 1 GM/100 ML BAG IV SCH ×2 (08:31→11:16)
--- NOTE | 2020-06-19 14:48 | Discharge Summary ---
Date of Service June 19, 2020 Admission HPI Per Admitting Provider The patient is a 29-year-old male resident of [facility], who reports that between 9 AM and 2 PM today, he took 120 tablets of 500 mg dosage of acetaminophen, 2 containers of antacids, and 60 tablets of his 5 mg Flagyl to get back at the officers at the residential, so they would have to take him to the hospital. Principal Diagnosis Acetaminophen overdose Discharge Exam Constitutional WD/WN, vitals as above Eyes EOM intact bilaterally; no conjunctival abnormality ENMT external ear and nose normal, oropharynx normal Neck trachea midline, no thyromegaly normal visual inspection Respiratory normal respiratory effort, lungs clear to auscultation no respiratory distress Cardiovascular RRR, no murmur, no edema Gastrointestinal (Abdomen) Inspection/Auscultation: abdomen normal to inspection; abdomen not distended Musculoskeletal no cyanosis or clubbing, extremities motor strength 5/5 Skin no rashes, warm and dry Neurologic moves all extremities and awake Psychiatric Orientation: alert, oriented to person and cooperative Discharge Data Allergies Allergy/AdvReac Type Severity Reaction Status Date / Time ibuprofen [From Motrin] Allergy Gastrointestinal Verified 06/17/20 21:42 Upset Consultations 06/17/20 23:50 ED Decision to Admit Stat 06/18/20 01:14 Consult Case Management - Discharge Planning Routine 06/18/20 10:24 Consult Psychiatry Routine Ordered Studies 06/17/20 21:39 CT abd pelvis IV con only Urgent Hospital Course (1) Intentional acetaminophen overdose: Initial acetaminophen level was 12 with repeat undetectable. Following the Yanira nomogram, he really didn't even need treatment. I suspect his story of taking 120 500mg tablets is not entirely true. - However, will continue Acetadote per protocol. - On 06/19, no indication of further toxicity. Patient feeling well, eating. No distress. (2) GERD (gastroesophageal reflux disease): - Continue pantoprazole (3) Depression: Self-harm attempt. - Consulted psychiatry -> Continue home meds. - Continue home meds (4) DVT prophylaxis: SCDs - Low DVT risk per admission calculator Total Time Total Time Spent Total Time Spent (In Minutes): 35 Discharge Plan Discharge Items Patient Disposition: [facility] Facility Reason For Visit: INTENTIONAL ACETAMINOPHEN OD Discharge Diagnosis: Acetaminophen OD Activity: Resume your previous activity Non-emergency contact: Primary Care Provider Call non-emergency contact if: your symptoms worsen Follow-up/Referrals: PCP,NO [Primary Care Provider] - Diet: Regular Addtl Attending Provider Instructions: Patient presented with acetaminophen OD. Went through NAC protocol. Never any elevation in liver enyzmes. AST/ALT were 9/16 on discharge. Maximum Tylenol level was 12, so I suspect his actual amount ingested wasn't as high as he claimed. Pending Studies at Discharge: No Stand-Alone Forms: My [facility], Suicide Prevention Resources Skilled Items Patient informed of condition?: Yes Discharge Level of Care: Other Communicable Disease: No Discharge Prognosis: Stable Lines: None Urinary Catheter: No Medications and DC Order Prescriptions: Continued prazosin [Minipress] 1 mg Capsule 1 mg PO HS RF: 0 sucralfate 1 gram Tablet 1 g PO QID RF: 0 metronidazole 500 mg Tablet 500 mg PO TID RF: 0 acetaminophen 500 mg Tablet 1,000 mg PO BID PRN (Reason: Pain) RF: 0 propranolol 10 mg Tablet 10 mg PO BID RF: 0 magnesium hydroxide [Milk of Magnesia] 400 mg/5 mL Suspension 30 ml PO DAILY PRN (Reason: Constipation) RF: 0 pantoprazole 40 mg Tablet,Delayed Release (Dr/Ec) 40 mg PO DAILY RF: 0 mirtazapine 15 mg Tablet 15 mg PO HS RF: 0 lithium carbonate 300 mg Tablet 300 mg PO BID RF: 0 Mineral Oil Heavy 30 ml PO BID RF: 0 Tums Anti-Gas/Antacid 2 tabs PO BID RF: 0 magnesium citrate 1 dose PO BID RF: 0 ondansetron 4 mg PO TID RF: 0 Discharge Orders: Discharge Order (Routine); Ordered 06/19/20 Ordered By: Marcel Moser Admission Data Admit Date/Time: 06/17/20 23:30 Attending Provider: Marcel Moser Admit Provider: Krishna Myers Primary Care Provider: PCP,NO Other Providers: Marcel Moser ; Sheyla Gresham Other Interventions: Discharge Summary Assessment (RN) Last Done: 06/19/20 10:31 Coding Level of Care Code D/C Day Management >30 mins Diagnoses Intentional acetaminophen overdose T39.1X2A Encounter type: initial encounter GERD (gastroesophageal reflux disease) K21.9 Depression F32.9 Depression Type: unspecified DVT prophylaxis Z29.9
== END 2020-06-19 11:37 | DRG 918 ==
LOC: ED 20:59 → SUATTDRO 23:30 → 2N 23:30